=== PATIENT | female | born 1965 | race Caucasian/White ===

== ENCOUNTER → 2017-06-16 | Outpatient (CLI) | payer OTHER | LOC: BMCIMAGING 12:56 | PROVIDERS: ATTEND Family Medicine | DX: Z12.31 Encounter for screening mammogram for malignant neoplasm of breast (principal); R92.2 Inconclusive mammogram | CPT/HCPCS: G0202 ==

== ENCOUNTER → 2017-07-29 | Outpatient (CLI) | payer OTHER | LOC: BMCIMAGING 09:46 | PROVIDERS: ATTEND Family Medicine | DX: N60.12 Diffuse cystic mastopathy of left breast (principal) | CPT/HCPCS: G0206 ==

== ENCOUNTER → 2018-07-25 | Outpatient (CLI) | payer OTHER | LOC: BMCIMAGING 08:37 | PROVIDERS: ATTEND Family Medicine | DX: Z12.31 Encounter for screening mammogram for malignant neoplasm of breast (principal) ==